=== PATIENT | female | born 1995 | race Caucasian/White ===

== ENCOUNTER 2016-08-10 00:50 | Emergency (ER) | payer OTHER ==
[~2016-08-10] VITALS: Ht 167.6 cm; Wt 86.2 kg
[2016-08-10] MEDS ORDERED: IV NS 0.9% 1,000 ML BAG IV ONE ×2 (01:30→03:00)
[2016-08-10] MEDS ORDERED: IV NS 0.9% 1,000 ML ONE ×2 (01:41→02:45)
[2016-08-10] MEDS ORDERED: IV SET PRIMARY 1 EA INFUS.SET MC ONE (01:41)
[2016-08-10 01:51] LABS: KETONES,URINE TRACE (NEGATIVE); LEUKOCYTE ESTERASE ,URINE NEGATIVE (NEGATIVE)
[2016-08-10 01:55] LABS: ADD UA MICROSCOPIC YES
[2016-08-10 01:56] LABS: BASOPHILS % (AUTO) 0.1 % (0.0-2.0); DIFF TOTAL % 100 %; EOSINOPHILS # (AUTO) 0.1 /CMM (0.0-0.7); EOSINOPHILS % (AUTO) 0.3 % (0.0-6.0); HEMATOCRIT 40 % (33-45); HEMOGLOBIN 13.7 g/dL (11.5-14.8); LYMPHOCYTES # (AUTO) 0.7 /CMM (0.8-4.8); LYMPHOCYTES % (AUTO) 3.8 % (20.0-44.0); MEAN CORPUSCULAR HEMOGLOBIN 31 PG (26.0-33.0); MEAN CORPUSCULAR HGB CONC 34 g/dl (31.0-36.0); MEAN CORPUSCULAR VOLUME 90 fL (82-100); MONOCYTES # (AUTO) 0.3 /CMM (0.1-1.30); MONOCYTES % (AUTO) 1.7 % (2.0-12.0); NEUTROPHILS # (AUTO) 18.2 /CMM (1.8-8.9); NEUTROPHILS % (AUTO) 94.1 % (43.0-81.0); PLATELET COUNT (AUTO) 261 /CMM (150-450); RED BLOOD CELL COUNT(AUTO) 4.44 MIL/uL (4.0-5.2); WHITE BLOOD COUNT (AUTO) 19.4 K/uL (4.3-11.0)
[2016-08-10 01:59] LABS: CALCIUM, SERUM 9.3 mg/dL (8.5-10.1); CREATININE 0.8 mg/dL (0.6-1.3)
[2016-08-10 02:02] LABS: POTASSIUM 4.2 mmol/L (3.5-5.1)
[2016-08-10 02:04] LABS: ADD URINE CULTURE NO; WBC,URINE 0-2 /HPF (0-3)
[2016-08-10] MEDS ORDERED: OSELTAMIVIR PHOSPHATE 75 MG CAPSULE ONE (02:43)
[2016-08-10] MEDS ORDERED: OSELTAMIVIR PHOSPHATE 75 MG CAPSULE PO ONE (03:00)
[2016-08-10 04:15] VITALS: BP 135/80
== END 2016-08-10 04:16 | disposition home or self-care (01) ==
LOC: ER 00:50
DX: E86.0 Dehydration (principal); B34.9 Viral infection, unspecified; D72.829 Elevated white blood cell count, unspecified; J45.909 Unspecified asthma, uncomplicated
CPT/HCPCS: 36415; 71010-TC; 80048-TC; 81000-TC; 84703-TC; 85025-TC; 87400; A4606; J7030; Z7610

== ENCOUNTER 2017-02-08 12:41 | Emergency (ER) | payer OTHER ==
[~2017-02-08] VITALS: Ht 167.6 cm; Wt 81.2 kg
[2017-02-08 12:49] VITALS: BP 158/82
[2017-02-08] MEDS ORDERED: MORPHINE SULFATE INJ 2 MG/ML DISP.SYRIN IV ONE (13:30)
[2017-02-08] MEDS ORDERED: IV NS 0.9% 1,000 ML BAG IV ONE (13:30)
[2017-02-08] MEDS ORDERED: ONDANSETRON HCL/PF - ER 4 MG/2 ML VIAL IV ONE (13:30)
[2017-02-08] MEDS ORDERED: ONDANSETRON HCL/PF 4 MG/2 ML VIAL ONE (13:36)
[2017-02-08] MEDS ORDERED: MORPHINE SULFATE INJ 4 MG/ML DISP.SYRIN ONE (13:36)
== END 2017-02-08 15:03 ==
LOC: ER 12:47
DX: E86.0 Dehydration (principal); G89.18 Other acute postprocedural pain; J45.909 Unspecified asthma, uncomplicated; Z90.89 Acquired absence of other organs
CPT/HCPCS: 96361; 96374; 96375; 99285; A4606; J2270; J2405 ×2; J7030 ×2; Z7610